=== PATIENT | female | born 1980 | race Two or more races ===

== ENCOUNTER 2017-07-25 10:19 | Outpatient (CLI) | payer OTHER | END 2017-07-25 11:26 | disposition home or self-care (01) | LOC: SONOGRAMA 10:19 | DX: E04.2 Nontoxic multinodular goiter (principal) ==

== ENCOUNTER → 2020-01-29 | Outpatient (CLI) | payer OTHER | END | disposition home or self-care (01) | LOC: PRENATAL 13:30 | PROVIDERS: ATTEND Obstetrics & Gynecology Maternal & Fetal Medicine | DX: O35.0XX1 Maternal care for (suspected) central nervous system malformation in fetus, fetus 1 (principal); O35.3XX1 Maternal care for (suspected) damage to fetus from viral disease in mother, fetus 1; O98.512 Other viral diseases complicating pregnancy, second trimester; Z36.89 Encounter for other specified antenatal screening; Z3A.20 20 weeks gestation of pregnancy ==

== ENCOUNTER → 2020-04-18 | Outpatient (CLI) | payer OTHER | END | disposition home or self-care (01) | LOC: PRENATAL 14:00 | PROVIDERS: ATTEND Obstetrics & Gynecology Maternal & Fetal Medicine | DX: O26.843 Uterine size-date discrepancy, third trimester (principal); Z36.89 Encounter for other specified antenatal screening; Z3A.31 31 weeks gestation of pregnancy ==

== ENCOUNTER 2020-06-02 15:00 | Inpatient (IN) | payer OTHER ==
[~2020-06-02] VITALS: Ht 165.1 cm; Wt 94.3 kg
[2020-06-13] MEDS ORDERED: PRENATAL TABLE1 EAC1 PO (07:53)
[2020-06-13] MEDS ORDERED: IRON325 MG PO (07:54)
[2020-06-13] MEDS ORDERED: INTEGRA PLUS C1 EAC1 (10:52)
== END 2020-06-16 10:19 | disposition home or self-care (01) | DRG 807 ==
LOC: LDR 06-13 06:52 → OB/GYN 06-14 19:24 → LDR 06-16 15:00
PROVIDERS: ADMIT Obstetrics & Gynecology; ATTEND Obstetrics & Gynecology
PROC: 10E0XZZ Delivery of Products of Conception, External Approach (ICD-10-PCS; principal; 2020-06-13)
PROC: 10907ZC Drainage of Amniotic Fluid, Therapeutic from Products of Conception, Via Natural or Artificial Opening (ICD-10-PCS; 2020-06-13)
PROC: 3E0P7VZ Introduction of Hormone into Female Reproductive, Via Natural or Artificial Opening (ICD-10-PCS; 2020-06-13)
PROC: 4A1HXFZ Monitoring of Products of Conception, Cardiac Rhythm, External Approach (ICD-10-PCS; 2020-06-13)
DX: O80 Encounter for full-term uncomplicated delivery (principal); Z37.0 Single live birth; Z3A.39 39 weeks gestation of pregnancy; Z20.822 Contact with and (suspected) exposure to COVID-19

== ENCOUNTER 2021-12-14 13:57 | Outpatient (CLI) | payer OTHER ==
[~2021-12-14 13:57] MED LIST: INTEGRA PLUS C1 EAC1; IRON325 MG PO; PRENATAL TABLE1 EAC1 PO
== END 2021-12-14 13:59 | disposition home or self-care (01) ==
LOC: SONOGRAMA 13:57
PROVIDERS: ATTEND Pathology Anatomic Pathology & Clinical Pathology
DX: E04.9 Nontoxic goiter, unspecified (principal); D34 Benign neoplasm of thyroid gland; E06.3 Autoimmune thyroiditis